=== PATIENT | female | born 1935 | race Two or more races ===

== ENCOUNTER → 2020-11-24 | Outpatient (CLI) | payer OTHER ==
[~2020-11-24] MED LIST: ATACAND16 MG PO
== END | disposition home or self-care (01) ==
LOC: PPH VACUNA 09:15
PROVIDERS: ATTEND Emergency Medicine Pediatric Emergency Medicine
DX: Z23 Encounter for immunization (principal)

== ENCOUNTER → 2022-10-10 | Emergency (ER) | payer OTHER ==
[~2022-10-10] VITALS: Ht 162.6 cm; Wt 81.6 kg
[~2022-10-10] MED LIST changes: +DILTIAZEM ER240 M2 PO; +DYRENIUM50 MG; +ELIQUIS2.5 MG; +GABAPENTIN100 M2; +LEVOFLOXACIN; +MACRODANTIN100 M1 PO; +PRAVASTATIN SOD10 MG PO; +SYMBICORT 80/10.2 GM IH; +TOPROL XL25 M1
== END | disposition home or self-care (01) ==
LOC: ER 19:38
DX: J10.1 Influenza due to other identified influenza virus with other respiratory manifestations (principal); Z88.2 Allergy status to sulfonamides; Z20.822 Contact with and (suspected) exposure to COVID-19

== ENCOUNTER 2022-10-11 19:47 | Inpatient (IN) | payer OTHER ==
[~2022-10-11] VITALS: Ht 160 cm; Wt 81.6 kg
[2022-10-15] MEDS ORDERED: IPRATROPIU0.2 MG/1 M IH (14:50)
[2022-10-15] MEDS ORDERED: XOPENEX CO1.25 MG/0. IH (14:50)
[2022-10-15] MEDS ORDERED: ELIQUIS2.5 MG PO (14:52)
[2022-10-15] MEDS ORDERED: ELIQUIS5 MG PO (14:52)
[2022-10-15] MEDS ORDERED: DILTIAZEM ER240 M2 PO (14:53)
[2022-10-15] MEDS ORDERED: PRAVASTATIN SOD10 MG PO (14:54)
[2022-10-15] MEDS ORDERED: TOPROL XL25 M1 PO (14:54)
[2022-10-15] MEDS ORDERED: SYMBICORT 80/10.2 GM IH (14:55)
== END 2022-10-15 17:23 | disposition home or self-care (01) | DRG 195 ==
LOC: ER 19:47 → SURH 22:03
PROVIDERS: ADMIT Internal Medicine; ATTEND Internal Medicine
PROC: 3E0F73Z Introduction of Anti-inflammatory into Respiratory Tract, Via Natural or Artificial Opening (ICD-10-PCS; principal; 2022-10-11)
PROC: 3E0F7SF Introduction of Other Gas into Respiratory Tract, Via Natural or Artificial Opening (ICD-10-PCS; 2022-10-11)
PROC: BW24ZZZ Computerized Tomography (CT Scan) of Chest and Abdomen (ICD-10-PCS; 2022-10-11)
DX: J10.00 Influenza due to other identified influenza virus with unspecified type of pneumonia (principal); J18.1 Lobar pneumonia, unspecified organism; J44.9 Chronic obstructive pulmonary disease, unspecified; I11.9 Hypertensive heart disease without heart failure; I48.91 Unspecified atrial fibrillation

== ENCOUNTER 2023-02-28 15:13 | Inpatient (IN) | payer OTHER ==
[~2023-02-28] VITALS: Ht 162.6 cm; Wt 99.8 kg
[~2023-02-28 15:13] MED LIST changes: +ELIQUIS2.5 MG PO; +ELIQUIS5 MG PO; +IPRATROPIU0.2 MG/1 M IH; +TOPROL XL25 M1 PO; +XOPENEX CO1.25 MG/0. IH
[2023-03-01] MEDS ORDERED: GABAPENTIN300 M2 (08:23)
[2023-03-01] MEDS ORDERED: TRIAMTERENE-HC1 EAC3 (08:24)
[2023-03-08] MEDS ORDERED: TOPROL XL25 M1 PO (07:17)
[2023-03-08] MEDS ORDERED: INTESTINEX680 M1 PO (07:17)
[2023-03-08] MEDS ORDERED: DILTIAZEM ER240 M2 PO (07:17)
[2023-03-08] MEDS ORDERED: ELIQUIS5 MG PO (07:17)
== END 2023-03-09 16:00 | DRG 177 ==
LOC: ER 15:13 → MEDJ 19:10
PROVIDERS: ADMIT Internal Medicine; ATTEND Internal Medicine
PROC: 4A12X4Z Monitoring of Cardiac Electrical Activity, External Approach (ICD-10-PCS; principal; 2023-02-28)
PROC: 3E0F7SF Introduction of Other Gas into Respiratory Tract, Via Natural or Artificial Opening (ICD-10-PCS; 2023-02-28)
PROC: B24BZZZ Ultrasonography of Heart with Aorta (ICD-10-PCS; 2023-02-28)
PROC: BW24ZZZ Computerized Tomography (CT Scan) of Chest and Abdomen (ICD-10-PCS; 2023-02-28)
DX: A48.1 Legionnaires' disease (principal); I50.33 Acute on chronic diastolic (congestive) heart failure; J44.0 Chronic obstructive pulmonary disease with (acute) lower respiratory infection; J44.1 Chronic obstructive pulmonary disease with (acute) exacerbation; J45.901 Unspecified asthma with (acute) exacerbation; I48.20 Chronic atrial fibrillation, unspecified; N17.9 Acute kidney failure, unspecified; J20.8 Acute bronchitis due to other specified organisms; I11.0 Hypertensive heart disease with heart failure; R53.81 Other malaise; E78.5 Hyperlipidemia, unspecified; E66.09 Other obesity due to excess calories; Z68.37 Body mass index [BMI] 37.0-37.9, adult; Z79.01 Long term (current) use of anticoagulants; Z88.2 Allergy status to sulfonamides; Z87.891 Personal history of nicotine dependence

== ENCOUNTER 2023-03-13 13:44 | Inpatient (IN) | payer OTHER ==
[~2023-03-13] VITALS: Ht 162.6 cm; Wt 83.0 kg
[~2023-03-13 13:44] MED LIST changes: +GABAPENTIN300 M2; +INTESTINEX680 M1 PO; +TRIAMTERENE-HC1 EAC3
--- NOTE | 2023-03-13 13:59 | NUR ---
SE RECIBE PTE LA CUAL LLEGA EN [facility], ALERTA Y ORIENTADA EN MADELYN LITO ESFERAS, REFIERE VENIR POR NIVELES DE POTASIO BAJOS Y CALCIO BAJO. PTE DEL DR LAM MOYA. B/P MANUAL 90/58, SE NOTIFICA A LA DRA SANTOS Y SE CONECTA A MONITOR CARDIACO.
[2023-03-14] MEDS ORDERED: TRIAMTERENE-HC1 EAC1 (08:01)
[2023-03-14] MEDS ORDERED: PRAVASTATIN SOD10 MG (08:01)
[2023-03-14] MEDS ORDERED: SYMBICORT 80/10.2 GM (08:01)
== END 2023-03-15 14:43 | DRG 641 ==
LOC: ER 13:44 → SEC-K 14:47 → MEDI 14:47
PROVIDERS: ADMIT Internal Medicine; ATTEND Internal Medicine
PROC: 4A12X4Z Monitoring of Cardiac Electrical Activity, External Approach (ICD-10-PCS; principal; 2023-03-13)
DX: E86.0 Dehydration (principal); N17.9 Acute kidney failure, unspecified; I48.20 Chronic atrial fibrillation, unspecified; K90.9 Intestinal malabsorption, unspecified; E87.1 Hypo-osmolality and hyponatremia; E87.6 Hypokalemia; E83.39 Other disorders of phosphorus metabolism; D72.0 Genetic anomalies of leukocytes; R53.81 Other malaise; I11.9 Hypertensive heart disease without heart failure; J44.9 Chronic obstructive pulmonary disease, unspecified; Z66 Do not resuscitate; Z79.01 Long term (current) use of anticoagulants; Z74.01 Bed confinement status

== ENCOUNTER 2023-10-26 07:50 | Emergency (ER) | payer OTHER ==
[~2023-10-26] VITALS: Ht 154.9 cm; Wt 73.9 kg
[~2023-10-26 07:50] MED LIST changes: +PRAVASTATIN SOD10 MG; +SYMBICORT 80/10.2 GM; +TRIAMTERENE-HC1 EAC1
[2023-10-26 09:16] LABS: HEMATOCRIT 45.5 % (36.0-45.00); HEMOGLOBIN 15.2 g/dL (12.0-15.00); MEAN CELL VOLUME 90.7 fL (80.00-100.00); MEAN CORPUSCULAR HEMOGLOBIN 30.3 pg (27.00-32.0); MEAN CORPUSCULAR HGB CONC 33.4 g/dl (32.0-36.0); PLATELET COUNT 366 K/uL (150-450); RED BLOOD COUNT 5.02 M/uL (4.00-6.00); RED CELL DISTRIBUTION WIDTH 14.7 % (11.5-14.5)
[2023-10-26 09:31] LABS: PARTIAL THROMBOPLASTIN TIME 29.4 SECONDS (22.0-34.0); PROTHROMBIN TIME 10.5 SECONDS (9.0-11.5)
[2023-10-26 09:35] LABS: ALBUMIN 3.7 gm/dL (3.4-5.0); BILIRUBIN TOTAL 0.97 mg/dL (0.3-1.2); CALCIUM 9.5 mg/dL (8.5-10.1); CREATININE SERUM 0.88 mg/dL (0.55-1.02); GFR 60.5; GLOBULINA 4.3 G/DL (2.4-3.5); POTASSIUM 3.43 mEq/L (3.5-5.1)
[2023-10-26 10:48] LABS: PH,URINE 6.5 (5.0-8.0); URINE APPEARANCE Clear; URINE BACTERIA 45.3 uL (0.0-1933); URINE BILIRRUBIN Negative (NEGATIVE); URINE BLOOD Negative; URINE COLOR Yellow; URINE EPITHELIAL CELLS 4.1 uL (0.0-38.8); URINE GLUCOSE Negative (NEGATIVE); URINE LEUKOCYTE Negative; URINE NITRATE Negative; URINE PROTEIN Negative (NEGATIVE); URINE UROBILINOGEN 0.2 E.U./dl
[2023-10-26 10:58] LABS: URINE WBC 0.6 uL (0.0-23.2)
== END 2023-10-26 15:10 | disposition home or self-care (01) ==
LOC: ER 07:50
PROVIDERS: Emergency Medicine
DX: I48.91 Unspecified atrial fibrillation (principal); J44.89 Other specified chronic obstructive pulmonary disease; R00.2 Palpitations; Z20.822 Contact with and (suspected) exposure to COVID-19; Z88.2 Allergy status to sulfonamides
CPT/HCPCS: 36415; 71045; 93005; 93041; 96372; 99283; J1940

== ENCOUNTER 2023-11-15 08:04 | Outpatient (CLI) | payer OTHER | END 2023-11-15 08:08 | disposition home or self-care (01) | LOC: NUCLEAR 08:04 | PROVIDERS: ATTEND Internal Medicine | DX: I50.9 Heart failure, unspecified (principal) | CPT/HCPCS: 78472; A9560 ==

== ENCOUNTER 2024-02-17 12:39 | Inpatient (IN) | payer OTHER ==
[~2024-02-17] VITALS: Ht 152.4 cm; Wt 72.6 kg
[2024-02-17] MEDS ORDERED: CEFTRIAXONE SODIUM 1,000 MG VIAL IV ONE (13:00)
[2024-02-17 13:54] LABS: HEMATOCRIT 40.1 % (36.0-45.00); HEMOGLOBIN 13.3 g/dL (12.0-15.00); MEAN CELL VOLUME 89.4 fL (80.00-100.00); MEAN CORPUSCULAR HEMOGLOBIN 29.7 pg (27.00-32.0); MEAN CORPUSCULAR HGB CONC 33.3 g/dl (32.0-36.0); PLATELET COUNT 265 K/uL (150-450); RED BLOOD COUNT 4.49 M/uL (4.00-6.00)
[2024-02-17] MEDS ORDERED: GUAIFENESIN 200 MG/10 ML BLIST.PACK PO ONE (14:00)
[2024-02-17] MEDS ORDERED: BENZONATATE 100 MG CAPSULE PO ONE (14:00)
[2024-02-17 14:12] LABS: INR 1.1; PARTIAL THROMBOPLASTIN TIME 32.9 SECONDS (22.0-34.0); PROTHROMBIN TIME 11.5 SECONDS (9.0-11.5)
[2024-02-17 14:16] LABS: ALBUMIN 2.9 gm/dL (3.4-5.0); BILIRUBIN TOTAL 0.52 mg/dL (0.3-1.2); CALCIUM 8.5 mg/dL (8.5-10.1); CREATININE SERUM 0.87 mg/dL (0.55-1.02); GFR 61.31; GLOBULINA 3.5 G/DL (2.4-3.5); POTASSIUM 4.34 mEq/L (3.5-5.1); TOTAL PROTEIN 6.4 gm/dL (6.4-8.2)
[2024-02-17] MEDS ORDERED: CIPROFLOXACIN IN 5 % DEXTROSE 400 MG/200 ML PIGGYBAG IV ONE (14:45)
[2024-02-17 15:13] LABS: ABG pCO2 34.9 mmHg (35-45)
[2024-02-17 15:14] LABS: ABG PO2 53.4 mmHg (80-100); BASE EXCESS -2.3 mmol/l; BICARBONATE 21.6 mmol/l (23-25); Tco2 22.7 mmol/l; allen test SATISFACTORY; o2 21 %; puncture site RADIAL RIGHT
[2024-02-17 15:15] LABS: SaO2 87.4 %
[2024-02-17] MEDS ORDERED: IPRATROPIUM/ALBUTEROL SULFATE 3 ML AMPUL.NEB IH ONE (18:00)
[2024-02-17] MEDS ORDERED: METHYLPREDNISOLONE SOD SUCC 125 MG VIAL IV ONE (18:00)
[2024-02-17] MEDS ORDERED: APIXABAN 2.5 MG TABLET PO SCH (19:26)
[2024-02-17] MEDS ORDERED: IPRATROPIUM/ALBUTEROL SULFATE 3 ML AMPUL.NEB IH SCH (19:28)
[2024-02-17] MEDS ORDERED: FAMOTIDINE/PF 20 MG in 0.9 % SODIUM CHLORIDE 100 ML IV SCH (19:29)
[2024-02-17] MEDS ORDERED: 0.9 % SODIUM CHLORIDE 1,000 ML IV SCH ×2 (19:45→20:15)
[2024-02-17] MEDS ORDERED: APIXABAN 5 MG TABLET PO SCH (20:08)
[2024-02-17] MEDS ORDERED: METOPROLOL TARTRATE 50 MG TABLET PO SCH (20:59)
[2024-02-17] MEDS ORDERED: IPRATROPIUM BROMIDE 0.5 MG/2.5 ML AMPUL.NEB IH SCH (21:00)
[2024-02-17] MEDS ORDERED: METHYLPREDNISOLONE SOD SUCC 40 MG VIAL IV SCH ×2 (21:00)
[2024-02-17] MEDS ORDERED: BUDESONIDE 0.5 MG/2 ML AMPUL.NEB IH SCH (21:00)
[2024-02-17 21:43] LABS: INR 1.1; PARTIAL THROMBOPLASTIN TIME 32.8 SECONDS (22.0-34.0); PROTHROMBIN TIME 11.5 SECONDS (9.0-11.5)
[2024-02-17 21:50] LABS: ALBUMIN 3.5 gm/dL (3.4-5.0); ANION GAP 15 (10.0-20.0); BLOOD UREA NITROGEN 19 mg/dL (7-18); BUN CREA RATIO 19 (7.0-25.0); CARBON DIOXIDE 23 mEq/L (21-32); CHLORIDE 103 mmol/L (98-107); CREATININE SERUM 1.01 mg/dL (0.55-1.02); GFR 51.61; GLUCOSE FASTING 113 mg/dL (65-100); OSMOLALITY SERUM 277 MOSM/KG (275-295); PHOSPHOROUS 3.4 mg/dL (2.5-4.9); POTASSIUM 4.04 mEq/L (3.5-5.1); SODIUM 137 mmol/L (136-145)
[2024-02-17 21:51] LABS: CKMB < 1.0 NG/ML (0.5-3.6)
[2024-02-17] MEDS ORDERED: CEFTRIAXONE SODIUM 2,000 MG VIAL IV SCH (22:28)
[2024-02-18] MEDS ORDERED: ONDANSETRON HCL 4 MG in DEXTROSE 5 % IN WATER 50 ML IV SCH (01:00)
[2024-02-18] MEDS ORDERED: FAMOTIDINE/PF 20 MG in 0.9 % SODIUM CHLORIDE 100 ML IV SCH (09:00)
[2024-02-18] MEDS ORDERED: CEFTRIAXONE SODIUM 2,000 MG VIAL IV SCH (09:00)
[2024-02-18 10:43] LABS: ABG PH 7.344 (7.35-7.45); ABG PO2 72.7 mmHg (80-100); ABG pCO2 32.1 mmHg (35-45); BASE EXCESS -7.4 mmol/l; BICARBONATE 17.1 mmol/l (23-25); Tco2 18.1 mmol/l; o2 21 %; puncture site BRADIAL LEFT
[2024-02-18] MEDS ORDERED: AZITHROMYCIN 500 MG VIAL IV ONE (13:18)
[2024-02-19 08:52] LABS: MYCOPLASMA PNEUMONIAE IGM NON REACTIVE (NO REACTIVE)
[2024-02-19] MEDS ORDERED: FAMOTIDINE/PF 20 MG in 0.9 % SODIUM CHLORIDE 100 ML IV SCH (09:00)
[2024-02-19] MEDS ORDERED: AZITHROMYCIN 250 MG in 0.9 % SODIUM CHLORIDE 250 ML IV SCH (09:00)
[2024-02-19 10:42] LABS: PH,URINE 5.5 (5.0-8.0); URINE APPEARANCE Clear; URINE BILIRRUBIN Negative (NEGATIVE); URINE BLOOD Negative; URINE COLOR Yellow; URINE GLUCOSE Negative (NEGATIVE); URINE LEUKOCYTE Negative; URINE NITRATE Negative; URINE UROBILINOGEN 0.2 E.U./dl
[2024-02-19 10:46] LABS: URINE BACTERIA 27.7 uL (0.0-1933); URINE EPITHELIAL CELLS 15.3 uL (0.0-38.8); URINE RBC 3.3 uL (0.0-20.8)
[2024-02-19 11:04] LABS: URINE PROTEIN 100 (NEGATIVE); URINE WBC 1.5 uL (0.0-23.2)
[2024-02-19] MEDS ORDERED: AZITHROMYCIN 2 MG/ML REDILUIDO IV SCH (14:00)
[2024-02-19] MEDS ORDERED: ENALAPRILAT DIHYDRATE 1.25 MG/ML VIAL IV PRN (20:00)
[2024-02-19] MEDS ORDERED: DEXTROSE 5 %-0.45 % SOD CHLORD 1,000 ML IV SCH (20:00)
[2024-02-19] MEDS ORDERED: DILTIAZEM HCL 30 MG TABLET PO SCH (20:14)
[2024-02-20 06:59] LABS: HEMATOCRIT 39.9 % (36.0-45.00); HEMOGLOBIN 13.2 g/dL (12.0-15.00); MEAN CELL VOLUME 89.2 fL (80.00-100.00); MEAN CORPUSCULAR HEMOGLOBIN 29.5 pg (27.00-32.0); MEAN CORPUSCULAR HGB CONC 33.1 g/dl (32.0-36.0); PLATELET COUNT 260 K/uL (150-450); RED BLOOD COUNT 4.48 M/uL (4.00-6.00); RED CELL DISTRIBUTION WIDTH 14.9 % (11.5-14.5)
[2024-02-20 07:14] LABS: ALBUMIN 2.6 gm/dL (3.4-5.0); BILIRUBIN TOTAL 0.56 mg/dL (0.3-1.2); CALCIUM 8.3 mg/dL (8.5-10.1); CREATININE SERUM 0.62 mg/dL (0.55-1.02); GFR 90.63; GLOBULINA 3.2 G/DL (2.4-3.5); MAGNESIUM 1.9 mg/dL (1.8-2.4); TOTAL PROTEIN 5.8 gm/dL (6.4-8.2)
[2024-02-20 07:20] LABS: C-REACTIVE PROTEIN 9.83 MG/DL (0.00-0.29); POTASSIUM 4.83 mEq/L (3.5-5.1)
[2024-02-20] MEDS ORDERED: SODIUM CL 0.9% 100 ML IV.SOLN IV ONE (08:23)
[2024-02-20] MEDS ORDERED: IPRATROPIUM BROMIDE 0.5 MG/2.5 ML AMPUL.NEB IH SCH (12:00)
[2024-02-20] MEDS ORDERED: DIPHENHYDRAMINE HCL 50 MG/ML VIAL 1ML IM ONE (17:45)
[2024-02-20] MEDS ORDERED: HALOPERIDOL LACTATE 5 MG/ML AMPUL IM ONE (17:45)
[2024-02-21] MEDS ORDERED: DILTIAZEM HCL 60 MG TABLET PO SCH (09:00)
[2024-02-21] MEDS ORDERED: DIGOXIN 0.125 MG TABLET PO SCH (09:00)
[2024-02-22] MEDS ORDERED: FUROsemide 20 MG/2 ML VIAL IV SCH (09:00)
[2024-02-22] MEDS ORDERED: VANCOMYCIN HCL 1,000 MG VIAL IV SCH (17:00)
[2024-02-22] MEDS ORDERED: METHYLPREDNISOLONE SOD SUCC 40 MG VIAL IV SCH (21:00)
[2024-02-22] MEDS ORDERED: MEROPENEM 500 MG/VIAL VIAL IV SCH (21:00)
[2024-02-23 08:50] LABS: HEMATOCRIT 41.3 % (36.0-45.00); HEMOGLOBIN 13.9 g/dL (12.0-15.00); MEAN CELL VOLUME 90.3 fL (80.00-100.00); MEAN CORPUSCULAR HEMOGLOBIN 30.4 pg (27.00-32.0); MEAN CORPUSCULAR HGB CONC 33.7 g/dl (32.0-36.0); PLATELET COUNT 294 K/uL (150-450); RED BLOOD COUNT 4.57 M/uL (4.00-6.00); RED CELL DISTRIBUTION WIDTH 14.3 % (11.5-14.5)
[2024-02-23 09:04] LABS: ALBUMIN 2.8 gm/dL (3.4-5.0); BILIRUBIN TOTAL 0.43 mg/dL (0.3-1.2); CALCIUM 8.5 mg/dL (8.5-10.1); CREATININE SERUM 0.69 mg/dL (0.55-1.02); GFR 80.11; GLOBULINA 2.9 G/DL (2.4-3.5); PHOSPHOROUS 3.1 mg/dL (2.5-4.9); POTASSIUM 4.79 mEq/L (3.5-5.1); TOTAL PROTEIN 5.7 gm/dL (6.4-8.2)
[2024-02-23 09:06] LABS: C-REACTIVE PROTEIN 1.35 MG/DL (0.00-0.29)
[2024-02-24 18:29] LABS: ABG PH 7.412 (7.35-7.45); ABG PO2 78.3 mmHg (80-100); ABG pCO2 30.3 mmHg (35-45); SaO2 95.4 %
[2024-02-24 18:30] LABS: BASE EXCESS -4.4 mmol/l; BICARBONATE 18.9 mmol/l (23-25); Tco2 19.8 mmol/l
[2024-02-24 18:31] LABS: allen test SATISFACTORY; o2 21 %; puncture site RADIAL LEFT
[2024-02-24] MEDS ORDERED: FAMOTIDINE/PF 20 MG/2 ML VIAL ONE (23:59)
[2024-02-25] MEDS ORDERED: FAMOTIDINE/PF 20 MG/2 ML VIAL IV SCH (09:00)
[2024-02-25] MEDS ORDERED: FUROsemide 20 MG TABLET PO SCH (09:00)
[2024-02-25] MEDS ORDERED: LANOXIN125 MCG PO (11:24)
== END 2024-02-25 13:56 | disposition home or self-care (01) | DRG 872 ==
LOC: ER 12:39 → MEDJ 19:48
PROVIDERS: General Practice; Internal Medicine; Internal Medicine Infectious Disease; ADMIT Internal Medicine; ATTEND Internal Medicine
PROC: BW24ZZZ Computerized Tomography (CT Scan) of Chest and Abdomen (ICD-10-PCS; principal; 2024-02-17)
PROC: B24BZZZ Ultrasonography of Heart with Aorta (ICD-10-PCS; 2024-02-17)
PROC: 4A12X4Z Monitoring of Cardiac Electrical Activity, External Approach (ICD-10-PCS; 2024-02-17)
DX: A41.9 Sepsis, unspecified organism (principal); J44.1 Chronic obstructive pulmonary disease with (acute) exacerbation; I48.91 Unspecified atrial fibrillation; I49.3 Ventricular premature depolarization; I11.0 Hypertensive heart disease with heart failure; I50.9 Heart failure, unspecified